=== PATIENT | male | born 1970 | race Caucasian/White ===

== ENCOUNTER 2020-07-15 21:01 | Emergency (ER) | payer OTHER, MEDICARE, SELFPAY ==
--- NOTE | ~2020-07-15 | XR_ITS ---
EXAMINATION: XR chest 2V DATE: 07/15/2020 21:56 INDICATION: Midsternal chest pain TECHNIQUE: PA and lateral views of the chest are obtained. COMPARISON: None available FINDINGS: The lungs are free of acute opacities. There is no pleural effusion or pneumothorax. The ca rdiomediastinal silhouette is normal. There is mild thoracic spondylosis. IMPRESSION: 1. No acute cardiopulmonary abnormality. Reviewed, dictated and finalized at location A. [employer]IP[employer]CHITECT
[2020-07-15 21:09] VITALS: BP 165/89; PULSE 95; RESP 18; TEMP 36.2; O2SAT 100
--- NOTE | 2020-07-15 21:11 | ECG_ITS ---
Measurements Intervals [place] Rate: 91 P: 30 VT: 176 QRS: 19 QRSD: 90 T: 36 QT: 336 QTc: 413 Interpretive Statements SINUS RHYTHM NORMAL ECG Electronically Signed On 07-16-2020 6:58:03 [employer] by Sacha Sandoval D.O.
[2020-07-15 21:43] LABS: Basophils Percent Auto 0.7 % (0.2-1.2); Eosinophils Absolute Auto 0.2 K/mm3 (0-0.3); Eosinophils Percent Auto 3.2 % (0-4.4); Hematocrit 45.2 % (42.0-52.0); Hemoglobin 15.6 g/dL (14.0-18.0); Immature Granulocyte Absolute 0.01 K/mm3 (0.00-0.031); Immature Granulocyte Percent A 0.2 % (0-0.5); Lymphocytes Absolute Auto 2.11 K/mm3 (0.9-3.2); Lymphocytes Percent Auto 37.6 % (18.3-44.2); Mean Corpuscular HGB Conc 34.5 g/dl (32-36); Mean Corpuscular Hemoglobin 29.7 pg (26-34); Mean Corpuscular Volume 86.1 fl (80-100); Mean Platelet Volume 9.7 fl (7.4-10.4); Monocytes Absolute Auto 0.4 K/mm3 (0.1-0.6); Monocytes Percent Auto 7.8 % (2.6-8.5); Neutrophils Absolute Auto 2.8 K/mm3 (1.3-6.7); Neutrophils Percent Auto 50.5 % (45.5-73.1); Platelet Count Result 225 k/mm3 (150-375); Red Blood Count 5.25 M/mm3 (4.6-6.20); Red Cell Distribution Width 11.9 % (11.5-14.5); White Blood Count 5.6 K/mm3 (4.5-10.0)
[2020-07-15 21:56] LABS: INR 0.9; Prothrombin Time 12.7 Seconds (11.1-14.7)
[2020-07-15 21:57] LABS: Partial Thromboplastin Time 29.9 SECONDS (22.3-36.8)
[2020-07-15 22:01] LABS: Anion Gap 8 mmol/L (8-16); Blood Urea Nitrogen 23 mg/dL (9-20); Calcium 8.9 mg/dL (8.4-10.2); Carbon Dioxide 27 mmol/L (22-30); Chloride 106 mmol/L (98-107); Estimated CRCL calculation 118 ml/min; Estimated Glomerular Filt Rate > 60; Glucose 120 mg/dL (75-110); Potassium 4.3 mmol/L (3.4-5.0); Sodium 141 mmol/L (137-145)
[2020-07-15 22:14] LABS: Troponin I < 0.012 ng/mL (0.000-0.034)
[2020-07-15] MEDS: ASPIRIN 81 MG CHEWABLE TABLET 324 MG PO (23:06)
[2020-07-15 23:09] VITALS: BP 141/84; PULSE 96; RESP 18; O2SAT 98
--- NOTE | 2020-07-15 23:32 | ED.CHESTPAIN ---
HPI - Chest Pain General Chief Complaint: Chest Pain Stated Complaint: chest pain Time Seen by Provider: 07/15/20 22:54 History of Present Illness HPI narrative: Patient is a 49-year-old male who presents ER with chest discomfort. Reports its of burning discomfort that began a couple days ago. Has history of acid reflux for which he takes Protonix. Symptoms can last 30 minutes to a couple hours. Today began having some intermittent discomfort in his left arm that was occasionally associated with the burning chest discomfort. No modification with eating or drinking. No positional or exertional exacerbation of arm or chest discomfort. No family history of heart disease in his mom/dad/siblings. Related Data Allergies Allergy/AdvReac Type Severity Reaction Status Date / Time Contrast Media Allergy HIVES, Uncoded 01/21/13 17:18 PARANOIA, HR INCREASED Review of Systems Review of Systems: All systems reviewed & are unremarkable except as noted in HPI and below Constitutional: Constitutional: Denies chills, Denies fever(s) and Denies weakness Cardiovascular: Cardiovascular: Reports chest pain, Denies rapid heart rate and Denies radiating jaw, neck or arm pain Respiratory: Respiratory: Denies cough and Denies dyspnea Musculoskeletal: Musculoskeletal: Denies arthralgias and Denies joint swelling Comments: Left arm pain PMFSH Past Medical History Medical History (Updated 07/16/20 @ 00:41 by Checo Ortiz MD) GERD (gastroesophageal reflux disease) Sclerosing mesenteritis Surgical History Surgical History (Updated 07/15/20 @ 23:34 by Checo Ortiz MD) H/O exploratory laparotomy Social History Social History (Updated 07/15/20 @ 23:34 by Checo Ortiz MD) Smoking status: Never smoker Exam Narrative: Exam Narrative: GENERAL: Well-appearing, well-nourished, and in no acute distress. HEAD: Normocephalic, atraumatic. ENT: Mucous membranes moist. CHEST: Clear to auscultation. No respiratory distress. HEART: Regular rate and rhythm. Normal peripheral pulses. ABDOMEN: Soft, nontender, nondistended. EXTREMITIES: Normal range of motion. No edema. NEURO: Alert and oriented x3. PSYCH: Normal mood and affect. Course Vital Signs Vital signs: Vital Signs Temperature 97.1 F L 07/15/20 21:09 Pulse Rate 95 03/05/21 21:09 Respiratory Rate 18 07/15/20 21:09 Blood Pressure 165/89 H 07/15/20 21:09 Pulse Oximetry 100 07/15/20 21:09 Temperature 97.1 F L 07/15/20 21:09 Pulse Rate 96 07/15/20 23:09 Respiratory Rate 18 07/15/20 23:09 Blood Pressure 141/84 H 07/15/20 23:09 Pulse Oximetry 98 07/15/20 23:09 MDM - Chest Pain Lab Data Result diagrams: 07/15/20 21:37 07/15/20 21:37 Labs: Lab Results 07/15/20 07/15/20 07/15/20 Range/Units 21:37 21:37 21:37 WBC 5.6 (4.5-10.0) K/mm3 RBC 5.25 (4.6-6.20) M/mm3 Hgb 15.6 (14.0-18.0) g/dL Hct 45.2 (42.0-52.0) % MCV 86.1 (80-100) fl MCH 29.7 (26-34) pg MCHC 34.5 (32-36) g/dl RDW 11.9 (11.5-14.5) % Plt Count 225 (150-375) k/mm3 MPV 9.7 (7.4-10.4) fl Immature Gran % (Auto) 0.2 (0-0.5) % Neut % (Auto) 50.5 (45.5-73.1) % Lymph % (Auto) 37.6 (18.3-44.2) % [place] % (Auto) 7.8 (2.6-8.5) % Eos % (Auto) 3.2 (0-4.4) % Baso % (Auto) 0.7 (0.2-1.2) % Lymph # (Auto) 2.11 (0.9-3.2) K/mm3 [place] # (Auto) 0.4 (0.1-0.6) K/mm3 Eos # (Auto) 0.2 (0-0.3) K/mm3 Baso # (Auto) 0.0 (0.0-0.1) K/mm3 Abs Immat Gran (auto) 0.01 (0.00-0.031) K/mm3 Absolute Neuts (auto) 2.8 (1.3-6.7) K/mm3 Absolute Nucleated RBC 0.0 (0.0-0.012) K/mm3 Nucleated RBC % 0.0 (0.0-0.2) % PT 12.7 (11.1-14.7) Seconds INR 0.9 APTT 29.9 (22.3-36.8) SECONDS Sodium 141 (137-145) mmol/L Potassium 4.3 (3.4-5.0) mmol/L Chloride 106 (98-107) mmol/L Carbon Dioxide 27 (22-30) mmol/L Anion Gap
[2020-07-16] MEDS: BELLADONNA ALK/PHENOB ELIX 10 ML, MAG HYDROX/ALUMINUM HYD/SIMETH 30 ML, LIDOCAINE HCL 2... PO (00:26)
[2020-07-16 00:58] LABS: Troponin I < 0.012 ng/mL (0.000-0.034)
[2020-07-16 01:11] VITALS: BP 149/93; PULSE 83; RESP 16; TEMP 36.3; O2SAT 98
== END 2020-07-16 01:12 | disposition home or self-care (01) ==
PROVIDERS: Emergency Medicine; Emergency Provider Emergency Medicine; PCP Family Medicine
DX: R07.89 Other chest pain (principal); K21.9 Gastro-esophageal reflux disease without esophagitis
CPT/HCPCS: 36415; 71046; 80048; 84484; 85025; 85610; 85730; 93005; 99284; A9270